=== PATIENT | male | born 1975 | race Caucasian/White ===

== ENCOUNTER 2022-08-26 00:17 | Emergency (ER) | payer MEDICAID, SELFPAY ==
[2022-08-26 00:19] VITALS: BP 237/117; PULSE 90; RESP 18; TEMP 37.1; O2SAT 97; BMI 45.1
--- NOTE | 2022-08-26 00:45 | EKG12_ITS ---
Test Reason : DYSRHYTHMIA Blood Pressure : / mmHG Vent. Rate : 102 BPM Atrial Rate : 102 BPM P-R Int : 130 ms QRS Dur : 090 ms QT Int : 366 ms P-R-T Axes : 048 071 048 degrees QTc Int : 477 ms Sinus tachycardia Otherwise normal ECG Confirmed by CHAD ACOSTA, ALEXSANDRA ([id number]), health editor RENU ORTEGA ([id number]) on 08/29/2022 9:17:16 AM Referred By: JOVANI Confirmed By:ALEXSANDRA BONILLA MD
[2022-08-26 00:59] LABS: Absolute Lymphocyte Count 1.42 X10^3/uL (0.83-4.51); Basophil# 0.08 X10^3/uL; Basophil% 0.9 % (0-1); Eosinophil# 0.36 X10^3/uL; Eosinophils% 4.3 % (0-5); Hematocrit 42.9 % (40-54); Hemoglobin 13.5 g/dL (13.0-16.5); Lymphocyte # 1.42 X10^3/ul (0.83-4.51); Lymphocyte % 16.8 % (19-41); Mean Corp Hgb Conc 31.5 g/dL (32-36); Mean Corpuscular Hgb 27.6 pg (27.0-32.0); Mean Corpuscular Volume 87.7 fL (80-94); Mean Platelet Vol. 10.3 fl (6.2-12.0); Monocyte# 0.56 X10^3/uL; Monocyte% 6.6 % (0-10); NRBC Flagged by Analyzer 0 % (0-5); Neutrophil # 5.99 X10^3/uL (2.7-7.7); Neutrophil % 70.8 % (47-70); Platelet Count 214 K/mm3 (150-450); RBC Distribution Width SD 48.4 fl (35.1-43.9); Red Blood Count 4.89 M/mm3 (4.6-6.2); White Blood Count 8.5 K/mm3 (4.4-11.0)
--- NOTE | 2022-08-26 01:07 | RAD_ITS ---
EXAM: XR CHEST, 2 VIEWS CLINICAL INDICATION: cough TECHNIQUE: 2 frontal and 2 lateral views. COMPARISON: None. FINDINGS: LUNGS AND PLEURAL SPACES: Mild airway thickening and bronchopulmonary cuffing, suspicion of reactive airway disease. No confluent alveolar infiltrate or effusion. No pneumothorax. HEART: Unremarkable. Cardiac silhouette not enlarged. MEDIASTINUM: Central airways and mediastinal contour are unremarkable. BONES/JOINTS: Unremarkable. SOFT TISSUES: Unremarkable. RAD/Chest PA and Lateral IMPRESSION: Mild bronchopulmonary cuffing suspicious for reactive airway disease such as asthma or bronchitis. Electronically Signed: Radha Martinez MD at 1:55 EST ,
[2022-08-26 01:12] VITALS: PULSE 103; RESP 20; RESP 24; O2SAT 95
[2022-08-26] MEDS: Ipratropium/Albuterol Sulfate 3 ML AMPUL.NEB INHALATION ×2 (01:12→04:32)
[2022-08-26 01:20] LABS: Anion Gap 6 (5-15); BUN 7 mg/dL (7-18); BUN/Creat Ratio 6.9 RATIO (10-20); Calcium,Total 8.6 mg/dL (8.5-10.1); Chloride 105 mmol/L (98-107); Creatinine, Serum 1.02 mg/dL (0.70-1.30); EST Glomerular Filtration Rate 83 mL/min (>60); Est Glom Filt Rate - Afr Amer 100 mL/min (>60); Estimated Creatinine Clearance 85.69 ml/min; Glucose 129 mg/dL (74-106); Magnesium 2.1 mg/dL (1.6-2.6); Potassium 3.9 mmol/L (3.5-5.1); Sodium Level 140 mmol/L (136-145); Troponin-I HS 23 pg/mL (3.0-78.0)
[2022-08-26 01:22] LABS: BNP,B-Type NATRIURETIC PEPTIDE 26.5 pg/mL (0-100)
[2022-08-26] MEDS: Labetalol (Prefilled) 20 MG/4 ML IV (01:22)
[2022-08-26] MEDS: cloNIDine HCl 0.2 MG Tablet PO (01:26)
[2022-08-26] MEDS: Orphenadrine 60 MG/2 ML Ampul IV (02:52)
[2022-08-26 03:15] VITALS: BP 188/96; PULSE 87; RESP 16; O2SAT 95
[2022-08-26 03:37] LABS: Troponin-I HS 24 pg/mL (3.0-78.0)
--- NOTE | 2022-08-26 04:29 | EDS_ITS ---
HPI History of Present Illness Chief Complaint: Shortness of Breath Narrative Narrative: Patient is a 47-year-old male with past medical history of tobacco abuse and hypertension. He states he took himself off his hypertensive medications because he had an allergic reaction to them and never went back to the doctor to discuss new medication. He states that over the past 5 to 7 days he has been having persistent cough making it difficult to sleep. He states he will get short of breath with this and then he triggers a panic attack which makes symptoms worse. He states that he is coughing up sputum and is concerned he may have an infection causing his symptoms and secondary to this comes in for evaluation [facility] Home Medications albuterol sulfate 90 mcg/actuation aerosol inhaler (Ventolin HFA) 1 - 2 puff inhalation Q4H PRN PRN Wheezing #1 device 08/26/22 [Rx Last Taken Unknown] fluticasone furoate 100 mcg-vilanterol 25 mcg/dose inhalation powder (Breo Ellipta) 1 inh inhalation DAILY #60 ea 08/26/22 [Rx Last Taken Unknown] nebivolol 5 mg tablet (Bystolic) 5 mg PO DAILY 30 days #30 tabs 08/26/22 [Rx Last Taken Unknown] promethazine 6.25 mg-codeine 10 mg/5 mL syrup 5 ml PO 4X/DAY PRN PRN cough 7 days #140 mL 08/26/22 [Rx Last Taken Unknown] Allergy/AdvReac Type Severity Reaction Status Date / Time lisinopril Allergy Angioedema Verified 08/26/22 00:23 Social History Smoking Status: Smoker, status unknown [facility] ED Constitutional Constitutional ED: Denies chills or fever(s) ENT ENT ED: Reports rhinorrhea and sore throat Cardiovascular Cardiovascular: Denies chest pain Respiratory/Chest Respiratory/Chest: Reports cough, dyspnea and sputum Gastrointestinal Gastrointestinal: Denies abdominal pain, diarrhea, nausea or vomiting Genitourinary Genitourinary ED: Denies dysuria Musculoskeletal Musculoskeletal: Denies myalgias Integumentary Denies rash Neurologic Neurologic: Denies headache(s) Psychiatric Psychiatric: Reports anxiety Hematologic/Lymphatic Hematologic/Lymphatic: Denies easy bleeding or easy bruising EXAM Physical Exam Const Vital Signs: 08/26/22 00:19 08/26/22 00:23 08/26/22 01:12 Temperature 98.7 F Temperature Source Temporal Pulse Rate 90 103 H Respiratory Rate 18 20 H Respiratory Effort Short of Breath Respiratory Depth Respiratory Pattern Normal Blood Pressure 237/117 H Blood Pressure Mean 157 Pulse Ox 97 Oxygen Delivery Method Room Air Room Air 08/26/22 01:12 08/26/22 03:15 08/26/22 04:39 Temperature Temperature Source Pulse Rate 87 82 Respiratory Rate 24 H 16 15 Respiratory Effort Normal Non-Labored Short of Breath Respiratory Depth Shallow Respiratory Pattern Tachypnea Blood Pressure 188/96 H 180/83 H Blood Pressure Mean 126 Pulse Ox 95 95 94 Oxygen Delivery Method Room Air Room Air Positive well nourished, well developed and obese General Appearance ED: well developed Nutritional Appearance: obese HEENT Reports moist mucous membranes HEENT Narrative: Nasal mucosa is hyperemic and boggy with enlarged inferior nasal turbinates and dried clear discharge at bilateral nares There is cobblestoning the posterior pharynx consistent with sinus drainage without tongue or lip swelling airway edema or compromise Eyes PERRL and EOMs intact bilaterally Neck supple and no JVD Chest Wall palpation of chest normal Resp Resp Narrative: Patient has slight tachypnea with diminished breath sounds and diffuse inspiratory and expiratory wheezes. Cardio regular rate and regular rhythm Rate: other Other Details: Radial pulses are plus 2 out of 4 bilaterally are equal and symmetric GI normal to inspection, nondistended, normoactive bowel sounds, non-tender, non- distended and no masses GI Narrative: No voluntary guarding or rigidity no pulsatile mass Auscultation: normoactive bowel sounds Palpation: soft Extremity Extremity Narrative: Patient has chronic stasis changes bilateral legs along with +1-2 pitting edema that is equal and symmetric with negative Homans' sign bilaterally Neuro oriented x3 and CN's II-XII intact bilaterally Sensorium / Orientation: alert Psych Psych Narrative: Patient has a nervous/anxious affect Skin Skin Narrative: Chronic stasis changes to bilateral lower legs as documented above MDM MDM MDM Narrative Medical decision making narrative: Patient presented to the ER hypertensive but does have a past medical history of this and has not been on any type of medication. With his history of smoking and uncontrolled hypertension and elected perform a basic cardiac work-up with chest x-ray to check for possible pneumonia from his cough. Labs revealed no signs of acute cardiac injury or acute kidney injury or severe electrolyte derangement. Chest x-ray also revealed no obvious pneumonia. Patient was given breathing treatments and had improvement of his breath sounds as well as work of breathing and his pulse ox remained in the mid to high 90s. He was given l abetalol and clonidine for his blood pressure and I did reduce approximately 25% which is the upper limit of the value literature reports should be reduced in the ER. Therefore this time patient does not have pneumonia he does not have acute coronary syndrome as a cause of his shortness of breath there are no signs of acute kidney disease or severe electrolyte derangement or anemia. Moreover his blood pressure has improved with treatment as well and he is not requiring any type of supplemental oxygen to keep his sats greater than 90%. Therefore do not feel there is need for admission and patient can be discharged home with symptomatic care. Lab Data Attestation: I reviewed the patient's lab results. Labs: Laboratory Results - last 24 hr 08/26/22 08/26/22 08/26/22 00:50 00:50 00:50 WBC 8.5 RBC 4.89 Hgb 13.5 Hct 42.9 MCV 87.7 MCH 27.6 MCHC 31.5 L RDW Std Deviation 48.4 H RDW Coeff of Anatoliy 15.0 H Plt Count 214 MPV 10.3 Immature Gran % (Auto) 0.600 Neut % (Auto) 70.8 H Lymph % (Auto) 16.8 L Doddridge % (Auto) 6.6 Eos % (Auto) 4.3 Baso % (Auto) 0.9 Absolute Neuts (auto) 6.0 Absolute Lymphs (auto) 1.42 Nucleated RBC % 0 Sodium 140 Potassium 3.9 Chloride 105 Carbon Dioxide 29.0 Anion Gap 6 BUN 7 Creatinine 1.02 Estim Creat Clear Calc 85.69 Est GFR (MDRD) Af Amer 100 Est GFR (MDRD) Non-Af 83 BUN/Creatinine Ratio 6.9 L Glucose 129 H Calcium 8.6 Magnesium 2.1 Troponin I High Sens 23 B-Natriuretic Peptide 26.5 08/26/22 02:56 WBC RBC Hgb Hct MCV MCH MCHC RDW Std Deviation RDW Coeff of Anatoliy Plt Count MPV Immature Gran % (Auto) Neut % (Auto) Lymph % (Auto) Doddridge % (Auto) Eos % (Auto) Baso % (Auto) Absolute Neuts (auto) Absolute Lymphs (auto) Nucleated RBC % Sodium Potassium Chloride Carbon Dioxide Anion Gap BUN Creatinine Estim Creat Clear Calc Est GFR (MDRD) Af Amer Est GFR (MDRD) Non-Af BUN/Creatinine Ratio Glucose Calcium Magnesium Troponin I High Sens 24 B-Natriuretic Peptide Radiography Diagnostic Testing: Clinical Impression(s) from Imaging Studies Chest X-Ray 08/26/22 01:07 IMPRESSION: Mild bronchopulmonary cuffing suspicious for reactive airway disease such as asthma or bronchitis. Electronically Signed: Radha Martinez MD at 1:55 EST , Chest x-ray as interpreted by the emergency medicine physician reveals perihilar opacities consistent with bronchitis without acute infiltrate pneumothorax or pleural effusion Discharge Plan Triage Chief Complaint: Shortness of Breath ED Provider: Ismael Perez Dx/Rx/DC Orders Clinical Impression: Acute exacerbation of chronic obstructive pulmonary disease, Accelerated hypertension, Anxiety, Tobacco abuse Instructions: COPD: Chronic Coughing, COPD: Wheezing and Chest Tightness Prescriptions: New albuterol sulfate [Ventolin HFA] 90 mcg/actuation HFA aerosol inhaler 1 - 2 puff inhalation Q4H PRN PRN (Reason: Wheezing) Qty: 1 2RF fluticasone furoate-vilanterol [Breo Ellipta] 100-25 mcg/dose blister with device 1 inh inhalation DAILY Qty: 60 2RF promethazine-codeine 6.25-10 mg/5 mL syrup 5 ml PO 4X/DAY PRN PRN (Reason: cough) 7 Days Qty: 140 0RF nebivolol [Bystolic] 5 mg tablet 5 mg PO DAILY 30 Days Qty: 30 2RF Primary Care Provider: Care Physician,No Primary Referrals: Althea Hernandez DO [Med Staff - Active Staff] - Care Physician,No Primary [Primary Care Provider] - Disposition Disposition: Home, Self Care
[2022-08-26 04:39] VITALS: BP 180/83; PULSE 82; RESP 15; O2SAT 94
--- NOTE | 2022-08-26 04:42 | CPS ---
[0432] x1 Duoneb. Pre-Tx: HR = 87, RR = 22 with diminished breath sounds and scattered wheezing. Post-Tx: HR = 93, RR = 20 with cleared up breath sounds.
[2022-08-26 05:00] VITALS: BP 180/83
== END 2022-08-26 06:43 | disposition home or self-care (01) ==
PROVIDERS: Emergency Provider Emergency Medicine; Visit Provider Emergency Medicine
DX: J44.1 Chronic obstructive pulmonary disease with (acute) exacerbation (principal); F41.9 Anxiety disorder, unspecified; I10 Essential (primary) hypertension; R06.02 Shortness of breath; E66.9 Obesity, unspecified
CPT/HCPCS: G0463; 71046; 80048; 83735; 83880; 84484; 85025; 87428; 93005; 94640; 96374; 96375; 99252; 99285; A4216